=== PATIENT | female | born 1960 | race Hispanic/Latino ===

== ENCOUNTER 2019-02-13 09:51 | Emergency (ER) | payer OTHER ==
[~2019-02-13] VITALS: Ht 157.5 cm; Wt 63.5 kg
--- OUTSIDE RECORDS SUMMARY | 2019-02-13 09:53 | XMS REPORT | Clinical Summary ---
Author Author [facility] Organization [facility] Address Unknown Phone Unavailable Care Team Providers Care Professional Fee Coder Name Role Phone Tierra Alaniz MD PCP Allergies No Known Allergies Medications End Date Status Medication Sig Dispensed Refills Start Date Active cyanocobalamin, vitamin 1 tablet po 0 B-12, (VITAMIN B-12) once daily . 1,000 mcg tablet Active polyethylene glycol Add lukewarm 4000 mL 0 (GOLYTELY) [id number] drinking 8 -5.86 gram oral water to the solutionIndications: fill marko (4 Positive occult stool liters) and blood test shake. Drink as directed by your doctor.. Active acetaminophen (TYLENOL 0 OR) Active gabapentin (NEURONTIN) Take 1 90 capsule 2 100 mg capsule by 8 capsuleIndications: mouth 3 times Neuropathy daily. Active lisinopril (ZESTRIL) 2.5 Take 1 tablet 90 tablet 1 mg tabletIndications: by mouth 9 Essential hypertension daily. Active sertraline (ZOLOFT) 50 mg Take 1 tablet 30 tablet 1 tabletIndications: by mouth 9 Depressive disorder daily. Active ergocalciferol (VITAMIN Take 1 12 capsule 0 D2) 50,000 unit capsule by 9 capsuleIndications: mouth weekly. Vitamin D deficiency 01/18/2019 Discontinued ascorbic acid, vitamin C, 1 tablet po 0 (VITAMIN C) 500 mg tablet once daily . 12/15/2018 Discontinued calcium carbonate/vitamin 1 tablet po 0 D3 (CALCIUM WITH VITAMIN bid . D3 OR) 12/06/2018 Discontinued lisinopril (ZESTRIL) 2.5 Take 1 tablet 90 tablet 1 mg tabletIndications: by mouth 8 Essential hypertension daily. 12/06/2018 Discontinued PARoxetine (PAXIL) 10 mg Take 1 tablet 30 tablet 2 tabletIndications: by mouth 8 Depression, unspecified every depression type morning. 01/31/2019 Discontinued sertraline (ZOLOFT) 25 mg Take 1 tablet 30 tablet 1 tabletIndications: by mouth 9 Depressive disorder daily. 12/15/2018 Discontinued permethrin (ELIMITE) 5 % apply 60 g 0 topical creamIndications: topically 9 Skin rash from neck down to soles of feet and wash off after 8 to 14 hours, 1 application. 01/18/2019 Discontinued permethrin (ELIMITE) 5 % apply 60 g 0 topical creamIndications: topically 9 Skin rash from neck down to soles of feet and wash off after 8 to 14 hours, 1 application. Active Problems Problem Noted Date Essential hypertension 01/02/2018 Difficulty walking 11/29/2017 Acute pain of left shoulder 11/29/2017 Chronic pain of left knee 11/29/2017 Subgingival dental calculus 2017 History of dental examination 12/17/2015 Lack of housing 08/29/2013 Screening for unspecified mental disorder and developmental handicap 08/23/2013 Alcohol dependence 05/22/2012 History of Alcohol withdrawal 05/21/2012 Alcoholic Peripheral Neuropathy 11/13/2008 Raynauds syndrome 11/13/2008 Tobacco Abuse Macrocytic Anemia from chronic alcoholism Atrial fibrillation by electrocardiogram Paroxysmal atrial fibrillation with RVR Encounters Care Team Description Date Type Specialty Tierra Alaniz MD Vitamin D deficiency (Primary Dx) 02/06/2019 Orders Only Family Practice Mckinley Fuentes MD Depressive disorder 01/31/2019 Office Visit Psychiatry Mckinley Fuentes MD Depressive disorder 01/31/2019 Orders Only Psychiatry Esther Hernández, [facility] 01/31/2019 Clinical Case Social Work Mgt Tierra Alaniz MD No Show 01/23/2019 Hospital Radiology Encounter Jenae Hope, PARKER Erroneous encounter-disregard 01/22/2019 Telephone Family Practice Tierra Alaniz MD Results 01/19/2019 Telephone Family Practice Elsa Easley DO NO SHOW ENCOUNTER (Primary Dx) 01/18/2019 Office Visit Chemical Dependency Tierra Alaniz MD Essential hypertension (Primary Dx); Hyperlipidemia, unspecified hyperlipidemia type; Hypercalcemia; Hyperkalemia; Screening for breast cancer; Dietary counseling and surveillance 01/18/2019 Office Visit Family Practice 01/18/2019 Ashley Willoughby, PARKER Results 12/26/2018 Telephone [facility] Practice Hope Salgado LVN Results 12/22/2018 Telephone [facility] Practice Tierra Alaniz MD Hyperkalemia (Primary Dx) 12/20/2018 Orders Only Family Practice Tierra Alaniz MD 12/15/2018 Ancillary Radiology Procedure Tierra Alaniz MD Pain in joint of left shoulder; Pain of left lower leg 12/15/2018 Ancillary Radiology Procedure Tierra Alaniz MD Essential hypertension (Primary Dx); Hyperlipidemia, unspecified hyperlipidemia type; Pain in joint of left shoulder; Pain of left lower leg; Skin rash; Screening for diabetes mellitus; Screening for thyroid disorder; Screening for HIV (human immunodeficiency virus); Dietary counseling and surveillance; Screening for breast cancer 12/15/2018 Office Visit Family Practice Mckinley Fuentes MD Alcohol use disorder, severe, dependence (Primary Dx); Depressive disorder 12/06/2018 Office Visit Psychiatry 12/06/2018 Tierra Kelly MD Essential hypertension 12/06/2018 Refill [facility] Practice Elsa Easley DO NO SHOW ENCOUNTER (Primary Dx) 11/23/2018 Office Visit Chemical Dependency Henrietta Ascencio Appointment Related Questions (Confirmed new pt appt with Ms. López 11/23/18 and will mail appt to the address on file. ) 10/19/2018 Telephone Chemical Dependency Nancy Jay Moderate episode of recurrent major depressive disorder (Primary Dx); Alcohol use disorder, severe, dependence 10/17/2018 Office Visit Psychology Jenae Hope, PARKER Results 10/17/2018 Telephone Family Practice Symone Padron MD Depression, unspecified depression type (Primary Dx); Health care maintenance; Pain 10/12/2018 Office Visit Family Practice 10/12/2018 Idalia Rodríguez LD Appointment Related Questions 03/28/2018 Telephone Nutrition Tierra Alaniz MD Hadgu, Akberet T 03/17/2018 Hospital Cardiology Encounter Tierra Alaniz MD Gomez, Rossie J, DPM Neuropathy (Primary Dx) 03/16/2018 Office Visit Podiatry Ancelmo Guerrero, PT Betina Preston Difficulty walking; Acute pain of left shoulder; Chronic pain of left knee 02/22/2018 Therapy Physical Therapy after 02/12/2018 Immunizations Name Administration Dates Next Due Ceftriazone 500mg 12/20/2011 Injection Influenza Vaccine 05/27/2017, 04/21/2016, 08/30/2013, 05/23/2012, 03/16/2011, 03/12/2010 PPD 03/16/2011 PPV 23 Pneumococcal 12/15/2011 Polysaccaride Saline Solution Iv 10/25/2015 Tdap Tetanus, diphtheria, 05/21/2012 acellular pertussis Vaccine Triamcinolone 40mg/ml Inj 12/20/2011 Family History Medical History Relation Name Comments Psychiatry Father etoh Diabetes Maternal Grandmother Stroke Maternal Uncle Hypertension Mother Other Other pt denies family hx of: rad/ca/cad/sz Psychiatry Paternal etoh Grandfather Psychiatry Paternal etoh Uncle Psychiatry Paternal etoh Uncle Psychiatry Paternal etoh Uncle Psychiatry Paternal etoh Uncle Psychiatry Paternal etoh Uncle Psychiatry Paternal etoh Uncle Psychiatry Paternal etoh Uncle Psychiatry Paternal etoh Uncle Relation Name Status Comments Brother Alive x4 Father Alive Maternal Grandfather Maternal Grandmother Maternal Uncle Mother Alive Other Paternal Grandfather Paternal Grandmother Alive Paternal Uncle Paternal Uncle Paternal Uncle Paternal Uncle Paternal Uncle Paternal Uncle Paternal Uncle Paternal Uncle Sister Alive x2 Social History Date Tobacco Use Types Packs/Day Years Used Former Smoker Cigarettes Smokeless Tobacco: Former User Tobacco Cessation: Counseling Given: No Comments: quit in 2014 Drinks/Week oz/Week Comments Alcohol Use 12 Cans of beer 6.0 stop 05/10/2013 -1st drink age 20yo, last drink 40oz beer 01/30/15, 1-2 daily; detox 2012 at [place], drinking 2x40oz beers/day Yes Food Insecurity Answer Date Recorded Within the past 12 months, you worried that your Never true 01/02/2018 food would run out before you got money to buy more. Within the past 12 months, the food you bought Never true 01/02/2018 just didn't last and you didn't have money to get more. Sex Assigned at Date Recorded Not on file Industry Job Start Date Occupation Not on file Not on file Not on file Travel End Travel History Travel Start No recent travel history available. Last Filed Vital Signs Reading Time Taken Comments Vital Sign 131/70 01/31/2019 3:16 PM CDT Blood Pressure 79 01/31/2019 3:16 PM CDT Pulse 36.5 C (97.7 F) 01/31/2019 3:16 PM CDT Temperature 16 01/31/2019 3:16 PM CDT Respiratory Rate - - Oxygen Saturation - - Inhaled Oxygen Concentration 60.7 kg (133 lb 12.8 oz) 01/31/2019 3:16 PM CDT Weight 158.5 cm (5' 2.4") 01/31/2019 3:16 PM CDT Height 24.16 01/31/2019 3:16 PM CDT Body Mass Index Plan of Treatment Care Team Description Date Type Specialty Mckinley Fuentes MD [address] [place] [address] [phone] 4-6 week f/u 03/14/2019 Office Visit Psychiatry Health Maintenance Due Date Last Done Comments Breast Cancer Scrn 01/05/2019 01/05/2018, 12/14/2016, 10/27/2015, (Yearly) Additional history exists Cervical Cancer Scrn (3 12/16/2019 12/15/2016, 08/27/2013, 03/16/2011 Yrs) Goals Goal Patient Associated Recent Progress Patient-Stat Author Goal Type Problems ed? Improved Mood Lifestyle No Tierra Alaniz MD Increase Physical Activity Lifestyle No Valentina Salgado LVN Increase physical activity Self No Tierra Alaniz MD Take medications as prescribed Self No Tierra Alaniz MD Procedures Comments Procedure Name Priority Date/Time Associated Diagnosis BASIC METABOLIC PANEL Routine 01/31/2019 Hyperkalemia 4:20 PM CDT LIVER PROFILE Routine 01/31/2019 Depressive disorder 4:20 PM CDT VIT D, 25-HYDROXY Routine 01/18/2019 Hypercalcemia 2:02 PM CDT INTACT PARATHYROID Routine 01/18/2019 Hypercalcemia HORMONE (PTH) 2:02 PM CDT BASIC METABOLIC PANEL Routine 01/18/2019 Hypercalcemia 2:02 PM CDT Hyperkalemia XRAY TIBIA AND FIBULA 2 Routine 12/15/2018 Pain of left lower leg VIEWS 11:57 AM CDT XRAY SHOULDER 2 VIEWS MIN Routine 12/15/2018 Pain in joint of left 11:57 AM CDT shoulder HIV-1/HIV-2 ROUTINE Routine 12/15/2018 Screening for HIV (human SCREENING 11:13 AM CDT immunodeficiency virus) HEMOGLOBIN A1C Routine 12/15/2018 Screening for diabetes 11:13 AM CDT mellitus CBC (WITHOUT Routine 12/15/2018 Essential hypertension DIFFERENTIAL) 11:13 AM CDT BASIC METABOLIC PANEL Routine 12/15/2018 Essential hypertension 11:12 AM CDT LIVER PROFILE Routine 12/15/2018 Hyperlipidemia, 11:12 AM CDT unspecified hyperlipidemia type LIPID PROFILE Routine 12/15/2018 Hyperlipidemia, 11:12 AM CDT unspecified hyperlipidemia type THYROID STIMULATING Routine 12/15/2018 Screening for thyroid HORMONE (TSH) 11:12 AM CDT disorder FECAL OCCULT BLOOD Routine 10/17/2018 Health care maintenance 9:17 AM CDT TRANSTHORACIC ECHO (TTE) Routine 03/17/2018 History of atrial 10:20 AM CDT fibrillation after 02/12/2018 Results * LIVER PROFILE (01/31/2019 4:20 PM CDT) Only the most recent of 2 results within the time period is included. Total Protein 7.3 6.0 - 8.3 g/dL [facility] Total Bilirubin 0.8 0.2 - 1.2 mg/dL [facility] Alkaline 60 34 - 104 U/L [facility] Phosphatase [facility] AST 36 13 - 39 U/L [facility] Direct 0.2 0.0 - 0.2 mg/dL [facility] Bilirubin [facility] ALT 27 7 - 52 U/L [facility] Albumin 4.4 3.7 - 5.3 g/dL [facility] Specimen Blood Performing Organization Address [place] Phone [facility] [address] [place] [address] * BASIC METABOLIC PANEL (01/31/2019 4:20 PM CDT) Only the most recent of 3 results within the time period is included. Sodium 137 136 - 145 mmol/L [facility] Potassium 4.5 3.5 - 5.1 mmol/L [facility] Chloride 101 98 - 107 mmol/L [facility] CO2 27 21 - 31 mmol/L [facility] Urea Nitrogen 12.0 7.0 - 25.0 mg/dL [facility] Creatinine 0.8 0.6 - 1.2 mg/dL [facility] Glucose 107 70 - 110 mg/dL [facility] Calcium, Total 10.0 8.6 - 10.3 mg/dL [facility] GFR, Estimated 74 (L) >=90 mL/min/1.73 m2 [facility] Anion Gap 9 5 - 16 mmol/L [facility] Specimen Blood Performing Organization Address [facility] Phone Number [facility] [address] [place] [address] * VIT D, 25-HYDROXY (01/18/2019 2:02 PM CDT) Vit D, 19.8 (L) 30.0 - 100.0 ng/mL [facility] 25-Hydroxy [facility] Vitamin D Deficient (A) Sufficient [facility] Interpretation Comment: [facility] Sufficient:>30.0 Insufficient:20.0 - 29.9 Deficient: <20.0 Specimen Blood Performing Organization Address [facility] Phone Number [facility] [address] [place] [address] * INTACT PARATHYROID HORMONE (PTH) (01/18/2019 2:02 PM CDT) Intact PTH 49.5 8.7 - 77.1 pg/mL [facility] Specimen Blood Performing Organization Address [facility] Phone Number [facility] [address] [place] [address] * XRAY TIBIA AND FIBULA 2 VIEWS (12/15/2018 11:57 AM CDT) Specimen Impressions Performed At IMPRESSION: SMS 1.Status post plate and screw fixation for the proximal tibial fractures which are healed and in stable anatomic alignment. No evidence of hardware loosening or failure. 2.Chronic fracture deformity proximal fibula. 3.Mild degenerative change of the knee. Dictated By: Ismael Ag MD, 12/15/2018 1:29 PM I have reviewed the study and agree with the findings in this report. Signed By: Jose Parra MD, 12/15/2018 1:32 PM Narrative Performed At EXAMINATION:XRAY TIBIA AND FIBULA 2 VIEWS SMS SIDE: Left INDICATION: 58 year old with left lower leg pain at times COMPARISON:12/15/2017 DISCUSSION: See impression. Procedure Note Interface, Rad/Mammog In - 12/15/2018 1:37 PM CDT EXAMINATION: XRAY TIBIA AND FIBULA 2 VIEWS SIDE: Left INDICATION: 58 year old with left lower leg pain at times COMPARISON: 12/15/2017 DISCUSSION: See impression. IMPRESSION IMPRESSION: 1. Status post plate and screw fixation for the proximal tibial fractures which are healed and in stable anatomic alignment. No evidence of hardware loosening or failure. 2. Chronic fracture deformity proximal fibula. 3. Mild degenerative change of the knee. Dictated By: Ismael Ag MD, 12/15/2018 1:29 PM I have reviewed the study and agree with the findings in this report. Signed By: Jose Parra MD, 12/15/2018 1:32 PM Performing Organization Address City/State/Zipcode Phone Number SMS * XRAY SHOULDER 2 VIEWS MIN (12/15/2018 11:57 AM CDT) Specimen Impressions Performed At IMPRESSION: SMS 1.No acute radiographic abnormality. 2.Multiple old appearing left rib fractures. 3.Previous left shoulder reverse arthroplasty Dictated By: Ismael Ag MD, 12/15/2018 1:23 PM I have reviewed the study and agree with the findings in this report. Signed By: Jose Parra MD, 12/15/2018 1:24 PM Narrative Performed At EXAMINATION:XRAY SHOULDER 2 VIEWS MIN SMS SIDE: Left INDICATION: 58 year old with left shoulder pain at times COMPARISON:10/27/2017 DISCUSSION: Old appearing left rib fractures. Previous left shoulder reverse arthroplasty. No evidence of hardware loosening or failure Procedure Note Interface, Rad/Mammog In - 12/15/2018 1:29 PM CDT EXAMINATION: XRAY SHOULDER 2 VIEWS MIN SIDE: Left INDICATION: 58 year old with left shoulder pain at times COMPARISON: 10/27/2017 DISCUSSION: Old appearing left rib fractures. Previous left shoulder reverse arthroplasty. No evidence of hardware loosening or failure IMPRESSION IMPRESSION: 1. No acute radiographic abnormality. 2. Multiple old appearing left rib fractures. 3. Previous left shoulder reverse arthroplasty Dictated By: Ismael Ag MD, 12/15/2018 1:23 PM I have reviewed the study and agree with the findings in this report. Signed By: Jose Parra MD, 12/15/2018 1:24 PM Performing Organization Address City[facility] Phone Number [facility] * HIV-1/HIV-2 ROUTINE SCREENING (12/15/2018 11:13 AM CDT) Pathologist [facility] HIV-1/HIV-2 NEGATIVE Negative [facility] Specimen Blood Performing Organization Address [facility] Phone Number [facility] [address] [place] [address] * HEMOGLOBIN A1C (12/15/2018 11:13 AM CDT) Pathologist [facility] Hemoglobin A1c 5.3 % [facility] Estimated 105 70 - 110 mg/dL [facility] Average Glucose [facility] Specimen Blood Performing Organization Address [facility] Phone Number [facility] [address] [place] [address] * CBC (WITHOUT DIFFERENTIAL) (12/15/2018 11:13 AM CDT) Pathologist [facility] WBC 6.4 4.5 - 11.0 K/uL [facility] RBC 4.06 (L) 4.20 - 5.40 M/uL [facility] Hemoglobin 13.6 12.0 - 16.0 g/dL [facility] Hematocrit 43.1 37.0 - 47.0 % [facility] MCV 106.2 (H) 82.0 - 92.0 fL [facility] MCH 33.5 (H) 27.0 - 32.0 pg [facility] MCHC 31.6 (L) 32.0 - 36.0 g/dL [facility] RDW 47.4 (H) 36.4 - 46.3 fL [facility] Platelet 414 (H) 150 - 400 K/uL [facility] Mean Platelet 11.6 9.4 - 12.4 fL [facility] Volume [facility] Percent NRBC 0.0 % [facility] Specimen Blood Performing Organization Address [facility] Phone Number [facility] [address] [place], [place] [id number] * THYROID STIMULATING HORMONE (TSH) (12/15/2018 11:12 AM CDT) TSH 0.99 0.57 - 3.74 uIU/mL [facility] Comment: [facility] If , please see the following reference ranges (not verified by lab): 1st Trimester: 0.05 -3.70 uIU/mL 2nd Trimester: 0.31 -4.35 uIU/mL 3rd Trimester: 0.41 - 5.18 uIU/mL Specimen Blood Performing Organization Address [facility] Phone Number [facility] [address] [place] [address] * LIPID PROFILE (12/15/2018 11:12 AM CDT) Triglyceride 77 <150 mg/dL [facility] Comment: [facility] Normal: < 150.0 mg/dL Borderline: 150-199 mg/dL High: 200-499 mg/dL Very High: >=500 mg/dL Cholesterol 247.0 (H) <=200.0 mg/dL [facility] Comment: [facility] Desirable: < 200.0 mg/dL Borderline: 200 - 240 mg/dL High Risk: > 240 mg/dL HDL 71.0 See Reference Range [facility] Comment: Narrative. mg/dL [facility] Increased CHD Risk: < 40.0 mg/dL Decreased CHD Risk: > 60 mg/dL LDL 161 (H) <100 mg/dL [facility] Comment: [facility] Optimal: < 100.0 mg/dL Near Optimal: 120-129 mg/dL Borderline: 130-159 mg/dL High: 160-189 mg/dL Very High: >=190 mg/dL Specimen Blood Performing Organization Address [facility] Phone Number [facility] [address] [place] [address] * OCCULT BLOOD ICT (10/17/2018 9:17 AM CDT) Occult Blood Negative [facility] ICT Specimen Stool Performing Organization Address [facility] Phone Number [facility] * TRANSTHORACIC ECHO (TTE) (03/17/2018 10:20 AM CDT) TRANSTHORACIC Transthoracic SMS ECHO (TTE) Echo Report LESLY ROBLES Age:58 Gender: F :1960 Exam Date: 03/17/2018 10:20 Exam Location: [facility] Echo Ordering Phys: TIERRA ALANIZ Referring Phys: Reading Phys:Mendoza Klein MD Fellow Phys: Lawson Adkins MD Fellow Phys: Loan Manager: Bina Franks Reason For Exam: Indications: 57 year old with history of paroxysmal atrial fibrillation, A- Fib ICD-9 Codes: I48.91 Exam Type: TRANSTHORACIC ECHO (TTE) Procedure CPT:47926 Addtional CPT: Ht (in): 61 BSA: 1.60HR: 84 Rhythm: Sinus rhythm Wt (lb): 130BP: 122/ 77 Technical Quality: Adequate History: MEASUREMENTS(Male / Female) Normal Values 2D ECHO LV Diastolic Diameter PLAX4.2 cm 4.2 - 5.9 / 3.9 - 5.3 cm LV Systolic Diameter PLAX 2.4 cm 2.1 - 4.0 cm LV Fractional Shortening PLAX 42.5 % 25 - 46% IVS Diastolic Thickness 1.2 cm LVPW Diastolic Thickness0 .92 cm LV Relative Wall Thickness0.51 LVOT Diameter 2.1 cm Aortic Root Diameter 2.9 cm LA Systolic Diameter LX 3.2 cm 3.0 - 4.0 / 2.7 - 3.8 cm LA Ao Ratio 1.1 LV Diastolic Volume MOD 2C76.1 cm LV Systolic Volume MOD 2C 25.8 cm LV Ejection Fraction MOD 2C 66.1 % LV Stroke Volume MOD 2C 50.3 cm LV Cardiac Output MOD [id number] cm/min LV Cardiac Index MOD 2C 2633 cm/minm LA Volume 29.9 cm 18 - 58 / 22 - 52 cm LA Volume Index 18.6 cm/m 16 - 28 cm/m RV Diastolic Basal Diameter 3.2 cm 2.0 - 2.8 cm RV Diastolic Mid Diameter 2.2 cm 2.7 - 3.3 cm RA Area 9.9 cm DOPPLER LVOT Peak Velocity 123 cm/s LVOT Peak Gradient 6 mmHg LVOT Mean Velocity 73.8 cm/s LVOT Mean Gradient 2.2 mmHg LVOT Velocity Time Integral 23.3 cm LVOT Stroke Volume 80.2 cm Mitral E Point Velocity 65.1 cm/s Mitral A Point Velocity 63.3 cm/s Mitral E to A Ratio 1 TR Peak Velocity 285 cm/s TR Peak Gradient 32.5 mmHg LV E' Lateral Velocity 7.7 cm/s Mitral E to LV E' Lateral Ratio 8.5 LV A' Lateral Velocity 11.9 cm/s LV E' Septal Velocity 6.8 cm/s Mitral E to LV E' Septal Ratio9.5 LV A' Septal Velocity 7.4 cm/s FINDINGS Left Ventricle Normal left ventricular size. Left ventricular wall thickness mildly increased. Normal left ventricular systolic function. Left ventricular ejection fraction is 65-69%. There are no regional wall motion abnormalities noted. Impaired LV relaxation, normal LV filling pressures. Right Ventricle Normal right ventricular size and systolic function. Right Atrium Normal right atrial size. Left Atrium Normal left atrial size. IAS Mitral Valve Grossly normal mitral valve. No mitral stenosis, regurgitation or prolapse. Aortic Valve Grossly normal aortic valve. No aortic valve stenosis or regurgitation. Tricuspid Valve Grossly normal tricuspid valve. Pulmonary artery systolic pressure estimated to be33-38 mm Hg assuming an RA pressure of 0-5mm Hg. Pulmonic Valve Structurally normal pulmonic valve. Pericardium No pericardial effusion. Aorta Normal size aortic root. Proximal ascending aorta not well visualized. IVC RA pressure is 0-5 mmHg. CONCLUSIONS No prior study for comparison. 1. Normal left ventricular size. Left ventricular wall thickness mildly increased. Normal left ventricular systolic function. Left ventricular ejection fraction is 65-69%. There are no regional wall motion abnormalities noted. Impaired LV relaxation, normal LV filling pressures. 2. Normal right ventricular size and systolic function. 3. No significant valve abnormalities. 4. Pulmonary artery systolic pressure estimated to be33-38 mm Hg assuming an RA pressure of 0-5mm Hg. PASP is upper limits of normal. Mendoza Klein MD Edited by:Mendoza Klein MD (Electronically Signed) Final Date:17 March 2018 17:21 2D ECHO LV Diastolic Diameter PLAX4.2 cm 4.2 - 5.9 / 3.9 - 5.3 cm LV Systolic Diameter PLAX 2.4 cm 2.1 - 4.0 cm LV Fractional Shortening PLAX 42.5 % 25 - 46% IVS Diastolic Thickness 1.2 cm LVPW Diastolic Thickness0 .92 cm LV Relative Wall Thickness0.51 LVOT Diameter 2.1 cm Aortic Root Diameter 2.9 cm LA Systolic Diameter LX 3.2 cm 3.0 - 4.0 / 2.7 - 3.8 cm LA Ao Ratio 1.1 LV Diastolic Volume MOD 2C76.1 cm LV Systolic Volume MOD 2C 25.8 cm LV Ejection Fraction MOD 2C 66.1 % LV Stroke Volume MOD 2C 50.3 cm LV Cardiac Output MOD [id number] cm/min LV Cardiac Index MOD 2C 2633 cm/minm LA Volume 29.9 cm 18 - 58 / 22 - 52 cm LA Volume Index 18.6 cm/m 16 - 28 cm/m RV Diastolic Basal Diameter 3.2 cm 2.0 - 2.8 cm RV Diastolic Mid Diameter 2.2 cm 2.7 - 3.3 cm RA Area 9.9 cm DOPPLER LVOT Peak Velocity 123 cm/s LVOT Peak Gradient 6 mmHg LVOT Mean Velocity 73.8 cm/s LVOT Mean Gradient 2.2 mmHg LVOT Velocity Time Integral 23.3 cm LVOT Stroke Volume 80.2 cm Mitral E Point Velocity 65.1 cm/s Mitral A Point Velocity 63.3 cm/s Mitral E to A Ratio 1 TR Peak Velocity 285 cm/s TR Peak Gradient 32.5 mmHg LV E' Lateral Velocity 7.7 cm/s Mitral E to LV E' Lateral Ratio 8.5 LV A' Lateral Velocity 11.9 cm/s LV E' Septal Velocity 6.8 cm/s Mitral E to LV E' Septal Ratio9.5 LV A' Septal Velocity 7.4 cm/s Specimen Performing Organization Address City/State/Zipcode Phone Number SMS after 02/12/2018 Insurance Type Payer Benefit Subscriber ID Effective Phone Address Plan / Dates Group [employer]ICA[employer] HMO [employer] xxxxxxxxx 2018- [phone] [address] [address] [place] [address] [employer] HMO [employer] xxxxxxxxx 2019- [phone] [address] [address] [place] [address] (Work) Advance Directives Date Inactivated Comments Code Status Date Activated 03/25/2013 8:11 PM Full Code 03/24/2013 3:22 PM 05/23/2012 7:16 PM Full Code 05/21/2012 9:16 PM 12/15/2011 7:56 PM Full Code 12/15/2011 12:03 AM Decision reached by: Competent Patient
--- OUTSIDE RECORDS SUMMARY | 2019-02-13 09:54 | XMS REPORT ---
Author Author [facility] Address Unknown Phone Unavailable Care Team Providers [facility] Manager Name Role Phone Unavailable Unavailable Payers Payer Name Policy Type Policy Number Effective Date Expiration Date Problems This patient has no known problems. Allergies, Adverse Reactions, Alerts Allergy Name Allergy Type Status Severity Reaction(s) Onset Date Inactive Date Treating Clinician Comments No Known Allergies DA Active U 2019-02-09 00:00:00 No Known Allergies DA Active U 2017-04-07 00:00:00 Medications This patient has no known medications. Encounters Start Date/Time End Date/Time Encounter Type Admission Type Attending Clinicians Care Facility Care Department Encounter ID 2019-03-14 00:00:00 2019-03-14 00:00:00 Outpatient [facility] [id number] 2019-02-07 00:00:00 2019-02-07 00:00:00 Outpatient [facility] [id number] 2019-02-05 00:00:00 2019-02-05 00:00:00 Outpatient [facility] [id number] 2019-01-31 16:19:25 2019-01-31 16:19:25 Outpatient [facility] [id number] 2019-01-31 15:16:01 2019-01-31 15:16:01 Outpatient [facility] [id number] 2019-01-31 00:00:00 2019-01-31 00:00:00 Outpatient [facility] [id number] 2019-01-24 00:00:00 2019-01-24 00:00:00 Outpatient [facility] [id number] 2019-01-23 00:00:00 2019-01-23 00:00:00 Outpatient [facility] [id number] 2019-01-18 14:01:53 2019-01-18 14:01:53 Outpatient [facility] [id number] 2019-01-18 11:53:39 2019-01-18 11:53:39 Outpatient [facility] [id number] 2019-01-18 00:00:00 2019-01-18 00:00:00 Outpatient [facility] [id number] 2019-01-18 00:00:00 2019-01-18 00:00:00 Outpatient [facility] [id number] 2019-01-17 00:00:00 2019-01-17 00:00:00 Outpatient [facility] [id number] 2019-01-17 00:00:00 2019-01-17 00:00:00 Outpatient [facility] [id number] 2019-01-12 00:00:00 2019-01-12 00:00:00 Outpatient [facility] [id number] 2019-01-11 00:00:00 2019-01-11 00:00:00 Outpatient [facility] [id number] 2019-01-09 00:00:00 2019-01-09 00:00:00 Outpatient [facility] [id number] 2019-01-09 00:00:00 2019-01-09 00:00:00 Outpatient [facility] [id number] 2019-01-05 00:00:00 2019-01-05 00:00:00 Outpatient [facility] [id number] 2019-01-04 00:00:00 2019-01-04 00:00:00 Outpatient [facility] [id number] 2019-01-02 00:00:00 2019-01-02 00:00:00 Outpatient [facility] [id number] 2019-01-02 00:00:00 2019-01-02 00:00:00 Outpatient [facility] [id number] 2018-12-29 00:00:00 2018-12-29 00:00:00 Outpatient [facility] [id number] 2018-12-22 00:00:00 2018-12-22 00:00:00 Outpatient [facility] [id number] 2018-12-15 11:32:04 2018-12-15 11:32:04 Outpatient [facility] [id number] 2018-12-15 11:31:49 2018-12-15 11:31:49 Outpatient [facility] [id number] 2018-12-15 11:12:29 2018-12-15 11:12:29 Outpatient [facility] [id number] 2018-12-15 09:40:27 2018-12-15 09:40:27 Outpatient [facility] [id number] 2018-12-15 00:00:00 2018-12-15 00:00:00 Outpatient [facility] [id number] 2018-12-06 13:27:19 2018-12-06 13:27:19 Outpatient [facility] [id number] 2018-12-06 00:00:00 2018-12-06 00:00:00 Outpatient [facility] [id number] 2018-11-23 00:00:00 2018-11-23 00:00:00 Outpatient [facility] [id number] 2018-11-23 00:00:00 2018-11-23 00:00:00 Outpatient [facility] [id number] 2018-11-23 00:00:00 2018-11-23 00:00:00 Outpatient [facility] [id number] 2018-11-22 00:00:00 2018-11-22 00:00:00 Outpatient [facility] [id number] 2018-11-16 00:00:00 2018-11-16 00:00:00 Outpatient [facility] [id number] 2018-11-16 00:00:00 2018-11-16 00:00:00 Outpatient [facility] [id number] 2018-11-16 00:00:00 2018-11-16 00:00:00 Outpatient [facility] [id number] 2018-11-15 00:00:00 2018-11-15 00:00:00 Outpatient [facility] [id number] 2018-11-15 00:00:00 2018-11-15 00:00:00 Outpatient [facility] [id number] 2018-11-14 00:00:00 2018-11-14 00:00:00 Outpatient [facility] [id number] 2018-11-09 00:00:00 2018-11-09 00:00:00 Outpatient [facility] [id number] 2018-11-09 00:00:00 2018-11-09 00:00:00 Outpatient [facility] [id number] 2018-11-08 00:00:00 2018-11-08 00:00:00 Outpatient [facility] [id number] 2018-11-08 00:00:00 2018-11-08 00:00:00 Outpatient [facility] [id number] 2018-11-08 00:00:00 2018-11-08 00:00:00 Outpatient [facility] [id number] 2018-11-01 00:00:00 2018-11-01 00:00:00 Outpatient [facility] [id number] 2018-11-01 00:00:00 2018-11-01 00:00:00 Outpatient [facility] [id number] 2018-10-31 00:00:00 2018-10-31 00:00:00 Outpatient [facility] [id number] 2018-10-23 00:00:00 2018-10-23 00:00:00 Outpatient [facility] [id number] 2018-10-23 00:00:00 2018-10-23 00:00:00 Outpatient [facility] [id number] 2018-10-19 00:00:00 2018-10-19 00:00:00 Outpatient [facility] [id number] 2018-10-19 00:00:00 2018-10-19 00:00:00 Outpatient [facility] [id number] 2018-10-18 00:00:00 2018-10-18 00:00:00 Outpatient [facility] [id number] 2018-10-17 10:40:04 2018-10-17 10:40:04 Outpatient [facility] [id number] 2018-10-17 09:27:12 2018-10-17 09:27:12 Outpatient [facility] [id number] 2018-10-17 00:00:00 2018-10-17 00:00:00 Outpatient [facility] [id number] 2018-10-17 00:00:00 2018-10-17 00:00:00 Outpatient [facility] [id number] 2018-10-17 00:00:00 2018-10-17 00:00:00 Outpatient [facility] [id number] 2018-10-16 00:00:00 2018-10-16 00:00:00 Outpatient [facility] [id number] 2018-10-13 00:00:00 2018-10-13 00:00:00 [facility] [id number] 2018-10-13 00:00:00 2018-10-13 00:00:00 Outpatient [facility] [id number] 2018-10-13 00:00:00 2018-10-13 00:00:00 Outpatient [facility] [id number] 2018-10-13 00:00:00 2018-10-13 00:00:00 Outpatient [facility] [id number] 2018-10-12 13:54:44 2018-10-12 13:54:44 Outpatient [facility] [id number] 2018-10-05 00:00:00 2018-10-05 00:00:00 Outpatient [facility] [id number] 2018-09-28 00:00:00 2018-09-28 00:00:00 Outpatient [facility] [id number] 2018-09-13 00:00:00 2018-09-13 00:00:00 Outpatient [facility] [id number] 2018-08-23 00:00:00 2018-08-23 00:00:00 Outpatient [facility] [id number] 2018-08-22 00:00:00 2018-08-22 00:00:00 Outpatient [facility] [id number] 2018-07-18 00:00:00 2018-07-18 00:00:00 Outpatient [facility] [id number] 2018-06-15 00:00:00 2018-06-15 00:00:00 Outpatient [facility] [id number] 2018-06-07 00:00:00 2018-06-07 00:00:00 Outpatient [facility] [id number] 2018-05-18 00:00:00 2018-05-18 00:00:00 Outpatient [facility] [id number] 2018-05-18 00:00:00 2018-05-18 00:00:00 Outpatient [facility] [id number] 2018-05-05 00:00:00 2018-05-05 00:00:00 Outpatient [facility] [id number] 2018-04-28 00:00:00 2018-04-28 00:00:00 Outpatient [facility] [id number] 2018-04-21 00:00:00 2018-04-21 00:00:00 Outpatient [facility] [id number] 2018-04-14 00:00:00 2018-04-14 00:00:00 Outpatient [facility] [id number] 2018-04-11 00:00:00 2018-04-11 00:00:00 Outpatient [facility] [id number] 2018-04-11 00:00:00 2018-04-11 00:00:00 Outpatient [facility] [id number] 2018-04-07 00:00:00 2018-04-07 00:00:00 Outpatient [facility] [id number] 2018-03-28 00:00:00 2018-03-28 00:00:00 Outpatient [facility] [id number] 2018-03-28 00:00:00 2018-03-28 00:00:00 Outpatient [facility] [id number] 2018-03-21 00:00:00 2018-03-21 00:00:00 Outpatient [facility] [id number] 2018-03-17 10:04:51 2018-03-17 10:04:51 Outpatient [facility] [id number] 2018-03-17 00:00:00 2018-03-17 00:00:00 Outpatient [facility] [id number] 2018-03-16 14:11:40 2018-03-16 14:11:40 Outpatient [facility] [id number] 2018-03-03 00:00:00 2018-03-03 00:00:00 Outpatient [facility] [id number] 2018-03-02 00:00:00 2018-03-02 00:00:00 Outpatient [facility] [id number] 2018-02-27 00:00:00 2018-02-27 00:00:00 Outpatient [facility] [id number] 2018-02-23 00:00:00 2018-02-23 00:00:00 Outpatient [facility] [id number] 2018-02-22 08:18:08 2018-02-22 08:18:08 Outpatient [facility] [id number] 2018-02-10 00:00:00 2018-02-10 00:00:00 Outpatient [facility] [id number] 2018-02-08 00:00:00 2018-02-08 00:00:00 Outpatient [facility] [id number] 2018-01-31 08:21:00 2018-01-31 08:21:00 Outpatient [facility] [id number] 2018-01-24 12:54:31 2018-01-24 12:54:31 Outpatient [facility] [id number] 2018-01-20 00:00:00 2018-01-20 00:00:00 Outpatient [facility] [id number] 2018-01-20 00:00:00 2018-01-20 00:00:00 Outpatient [facility] [id number] 2018-01-17 00:00:00 2018-01-17 00:00:00 Outpatient [facility] [id number] 2018-01-16 09:35:03 2018-01-16 09:35:03 Outpatient [facility] [id number] 2018-01-12 00:00:00 2018-01-12 00:00:00 Outpatient [facility] [id number] 2018-01-11 00:00:00 2018-01-11 00:00:00 Outpatient [facility] [id number] 2018-01-11 00:00:00 2018-01-11 00:00:00 Outpatient [facility] [id number] 2018-01-05 08:28:48 2018-01-05 08:28:48 Outpatient [facility] [id number] 2018-01-04 13:14:35 2018-01-04 13:14:35 Outpatient [facility] [id number] 2018-01-02 14:01:35 2018-01-02 14:01:35 Outpatient [facility] [id number] 2018-01-02 13:49:10 2018-01-02 13:49:10 Outpatient [facility] [id number] 2018-01-02 11:43:12 2018-01-02 11:43:12 Outpatient [facility] [id number] 2018-01-02 00:00:00 2018-01-02 00:00:00 Outpatient [facility] [id number] 2018-01-02 00:00:00 2018-01-02 00:00:00 Outpatient [facility] [id number] 2018-01-02 00:00:00 2018-01-02 00:00:00 Outpatient [facility] [id number] 2017-12-22 10:01:52 2017-12-22 10:01:52 Outpatient [facility] [id number] 2017-12-22 00:00:00 2017-12-22 00:00:00 Outpatient [facility] [id number] 2017-12-16 00:00:00 2017-12-16 00:00:00 Outpatient [facility] [id number] 2017-12-15 11:17:14 2017-12-15 11:17:14 Outpatient [facility] [id number] 2017-12-15 10:26:00 2017-12-15 10:26:00 Outpatient [facility] [id number] 2017-12-13 00:00:00 2017-12-13 00:00:00 Outpatient [facility] [id number] 2017-12-09 07:51:11 2017-12-09 07:51:11 Outpatient [facility] [id number] 2017-12-08 00:00:00 2017-12-08 00:00:00 Outpatient [facility] [id number] 2017-11-29 13:14:50 2017-11-29 13:14:50 Outpatient [facility] [id number] 2017-11-29 13:04:23 2017-11-29 13:04:23 Outpatient [facility] [id number] 2017-11-28 00:00:00 2017-11-28 00:00:00 Outpatient [facility] [id number] 2017-11-25 10:14:04 2017-11-25 10:14:04 Outpatient [facility] [id number] 2017-11-25 07:55:31 2017-11-25 07:55:31 Outpatient [facility] [id number] 2017-11-25 00:00:00 2017-11-25 00:00:00 Outpatient [facility] [id number] 2017-11-17 09:21:30 2017-11-17 09:21:30 Outpatient [facility] [id number] 2017-11-17 08:02:32 2017-11-17 08:02:32 Outpatient [facility] [id number] 2017-11-17 07:35:25 2017-11-17 07:35:25 Outpatient [facility] [id number] 2017-11-07 00:00:00 2017-11-07 00:00:00 Outpatient [facility] [id number] 2017-10-27 14:28:55 2017-10-27 14:28:55 Outpatient [facility] [id number] 2017-10-27 12:58:27 2017-10-27 12:58:27 Outpatient [facility] [id number] 2017-10-27 00:00:00 2017-10-27 00:00:00 Outpatient [facility] [id number] 2017-10-27 00:00:00 2017-10-27 00:00:00 Outpatient [facility] [id number] 2017-08-25 00:00:00 2017-08-25 00:00:00 Outpatient [facility] [id number] 2017-07-14 00:00:00 2017-07-14 00:00:00 Outpatient [facility] [id number] 2017-07-13 00:00:00 2017-07-13 00:00:00 Outpatient [facility] [id number] 2017-07-02 09:04:13 2017-07-02 09:04:13 Outpatient [facility] [id number] 2017-06-15 00:00:00 2017-06-15 00:00:00 Outpatient [facility] [id number] 2017-06-10 10:01:01 2017-06-10 10:01:01 Outpatient [facility] [id number] 2017-05-27 10:56:34 2017-05-27 10:56:34 Outpatient [facility] [id number] 2017-04-28 10:14:50 2017-04-28 10:14:50 Outpatient [facility] [id number] 2017-03-18 00:00:00 2017-03-18 00:00:00 Outpatient [facility] [id number] 2017-03-18 00:00:00 2017-03-18 00:00:00 Outpatient [facility] [id number] 2017-03-15 14:04:59 2017-03-15 14:04:59 Outpatient [facility] [id number] 2017-03-02 00:00:00 2017-03-02 00:00:00 Outpatient [facility] [id number] 2017-02-28 00:00:00 2017-02-28 00:00:00 Outpatient [facility] [id number] 2017-02-18 00:00:00 2017-02-18 00:00:00 Outpatient [facility] [id number] 2017-02-10 00:00:00 2017-02-10 00:00:00 Outpatient [facility] [id number] 2017 13:54:16 2017 13:54:16 Outpatient [facility] [id number] 00:00:00 2017 00:00:00 Outpatient [facility] [id number] 2017-01-26 07:41:57 2017-01-26 07:41:57 Outpatient [facility] [id number] 2017-01-11 00:00:00 2017-01-11 00:00:00 Outpatient [facility] [id number] 2017-01-07 00:00:00 2017-01-07 00:00:00 Outpatient [facility] [id number] 2017-01-06 13:46:37 2017-01-06 13:46:37 Outpatient [facility] [id number] 2017-01-05 00:00:00 2017-01-05 00:00:00 Outpatient [facility] [id number] 2016-12-27 10:28:35 2016-12-27 10:28:35 Outpatient [facility] [id number] 2016-12-24 11:25:35 2016-12-24 11:25:35 Outpatient [facility] [id number] 2016-12-24 10:56:16 2016-12-24 10:56:16 Outpatient [facility] [id number] 2016-12-24 09:28:53 2016-12-24 09:28:53 Outpatient [facility] [id number] 2016-12-24 00:00:00 2016-12-24 00:00:00 Outpatient [facility] [id number] 2016-12-15 13:07:38 2016-12-15 13:07:38 Outpatient [facility] [id number] 2016-12-14 13:11:47 2016-12-14 13:11:47 Outpatient [facility] [id number] 2016-12-13 00:00:00 2016-12-13 00:00:00 Outpatient [facility] [id number] 2016-12-13 00:00:00 2016-12-13 00:00:00 Outpatient [facility] [id number] 2016-12-10 11:42:32 2016-12-10 11:42:32 Outpatient [facility] [id number] 2016-12-10 11:35:57 2016-12-10 11:35:57 Outpatient [facility] [id number] 2016-12-08 14:03:58 2016-12-08 14:03:58 Emergency [facility] [id number] 2016-12-08 13:51:06 2016-12-08 13:51:06 Emergency [facility] [id number] 2016-12-08 07:52:26 2016-12-08 07:52:26 Outpatient [facility] [id number] 2016-12-08 00:00:00 2016-12-08 00:00:00 Outpatient [facility] [id number] 2016-11-19 00:00:00 2016-11-19 00:00:00 Outpatient [facility] [id number] Results Test Description Test Time Test Comments Text Results Atomic Results Result Comments PHOSPHORUS 2019-02-09 14:04:00 PHOSPHORUS (test code=PHOS) 3.3 mg/dL 2.5-4.9 [id number] 14:04:00* Test Item Value Reference Range Comments AMYLASE (test code=MALCOM) 53 Unit/L 25-115 [id number] 14:04:00* Test Item Value Reference Range Comments LIPASE (test code=LIP) 146 U/L 73.0-393.0 [id number] 14:04:00* Test Item Value Reference Range Comments MAGNESIUM (test code=MAG) 1.6 mg/dL 1.8-2.4 VITAMIN [id number] 14:04:00* Test Item Value Reference Range Comments VITAMIN B12 (test code=VITB12) 485 pg/mL 193-986 FOLIC [id number] 14:04:00* Test Item Value Reference Range Comments FOLIC ACID (test code=FOL) 15.7 ng/mL 3.10-17.50 - CTA [id number] 13:40:00 Name: NICOLLE ROBLES [facility] : 1960 Age/S: 59 / F [address] [facility] Unit #: [id number] Loc: [place] [address] Phys: Stas Hernandez MD Acct: [id number] Dis Date: Status: ADM IN PHONE #: [phone] Exam Date: 02/09/2019 1328 FAX #: [phone] Reason: chest pain EXAMS: CPT CODE: [id number] CTA CHEST 22448 HISTORY: Chest pain. COMPARISON: None available. CTA CHEST: 3-D images. 100 mL Isovue-370. Automated exposure control. Unremarkable aorta without aneurysm or dissection. Suboptimal contrast bolus of the pulmonary arteries however no embolism in the proximal and mid pulmonary artery branches. Distal branches are nondiagnostic due to poor opacification and poor resolution. Well-opacified SVC and the neck vasculature in the portions visualized. Thyroid glands are unremarkable. Esophageal wall is not thickened. No pathologic adenopathy. Cardiac silhouette is normal without pericardial effusion. Visualized upper abdomen demonstrating fatty liver. The subcutaneous tissues and the musculature are normal in appearance. No lytic or blastic lesions are noted within the bony skeleton. DJD. Old posterior lateral left upper rib fracture. Platelike atelectasis within the lingula. No infiltrates, effusion or congestion. No bronchiectasis, honeycombing or fibrosis or endobronchial lesions are noted. No lung mass or nodules are noted. IMPRESSION: No pulmonary embolism in the mid and proximal pulmonary artery branches. The distal branches are limited due to suboptimal contrast bolus and poor resolution. Unremarkable aorta without aneurysm or dissection. The lungs are clear with dependent changes in the lingula. at 1340 Reported and signed by: Dung Gonzalez M.D. CC: Stas Hernandez MD Technologist:Melody Alaniz,RT(R),CT CTDI: DLP: Trnscb Date/Time: 02/09/2019 (4820) t.[email or web address] Orig Print D/T: S: 02/09/2019 (8604) PAGE 1 Signed Report [id number] 13:34:00* Test Item Value Reference Range Comments ALCOHOL (test code=ALC) 327 mg/dL 0.0-3.0 INTERPRETIVE DATA NOTE: POSITIVE SCREENING RESULTS SHOULD BE CONSIDERED PRESUMPTIVE.WHEN COLLECTED FOR MEDICAL PURPOSES ONLY. SPECIMEN WILL NOTBE COLLECTED BY CHAIN OF CUSTODY.IF A CONFIRMATION OF POSITIVE RESULTS IS DESIRED, ACONFIRMATION TEST MUST BE REQUESTED BY THE PHYSICIAN AT ANADDITIONAL CHARGE TO THE PATIENT. [id number] 12:07:00* Test Item Value Reference Range Comments D-DIMER (test code=DDIMER) 696.00 ng/mLFEU 0-500 Results called to by [email or web address] 02/09/19 1207Critical results verified and read back by Nurse? YClinical Cut-off value for D-Dimer is 500 ng/mL FEU. Comment: The [employer] D- Dimer assay is intended for use asan aid in the diagnosis of venous thromboembolism (VTE)[deep vein thrombosis (DVT) or pulmonary embolism (PE)].The measurement of D-Dimer should not be used as an aid inthe diagnosis of VTE, in patient with: -Therapeutic dose anticoagulant therapy for >24 hours - Fibrinolytic therapy within previous 7 days -Trauma or surgery within previous 4 weeks -Disseminated malignancies -Aortic aneurysm -Sepsis, severe infections, pneumonia, severe skin infections -Liver cirrhosis - BASIC METABOLIC [id number] 12:06:00* Test Item Value Reference Range Comments SODIUM (test code=NA) 139 mmol/L 136-145 POTASSIUM (test code=K) 3.9 mmol/L 3.5-5.1 CHLORIDE (test code=CL) 105.0 mmol/L 98-107 CARBON DIOXIDE (test code=CO2) 23.0 mmol/L 21-32 ANION GAP (test code=GAP) 14.9 10-20 GLUCOSE (test code=GLU) 104 mg/dL 74-106 BLOOD UREA NITROGEN (test code=BUN) 5 mg/dL 7-18 GLOMERULAR FILTRATION RATE (test code=GFR) > 60 mL/min >=60 Estimated GFR by using Modified MDRD formula.Chronic kidney disease is defined as either kidney damageor GFR <60 mL/min/1.73 m2 for >3 months. CREATININE (test code=CREAT) 0.60 mg/dL 0.55-1.02 Note change in reference range due to change in reagent. BUN/CREATININE RATIO (test code=BUN/CREA) 8.5 10-20 CALCIUM (test code=CA) 8.9 mg/dL 8.5-10.1 [id number] 12:06:00* Test Item Value Reference Range Comments TROPONIN-I (test code=TROPI) <0.015 ng/mL 0-0.045 BASIC METABOLIC [id number] 11:55:00* Test Item Value Reference Range Comments SODIUM (test code=NA) 139 mmol/L 136-145 POTASSIUM (test code=K) 3.9 mmol/L 3.5-5.1 CHLORIDE (test code=CL) 105.0 mmol/L 98-107 CARBON DIOXIDE (test code=CO2) mmol/L 21-32 ANION GAP (test code=GAP) 10-20 GLUCOSE (test code=GLU) mg/dL 74-106 BLOOD UREA NITROGEN (test code=BUN) mg/dL 7-18 GLOMERULAR FILTRATION RATE (test code=GFR) mL/min >=60 CREATININE (test code=CREAT) mg/dL 0.55-1.02 BUN/CREATININE RATIO (test code=BUN/CREA) 10-20 CALCIUM (test code=CA) 8.9 mg/dL 8.5-10.1 [id number] 11:55:00* Test Item Value Reference Range Comments TROPONIN-I (test code=TROPI) ng/mL 0-0.045 BASIC METABOLIC [id number] 11:54:00* Test Item Value Reference Range Comments SODIUM (test code=NA) 139 mmol/L 136-145 POTASSIUM (test code=K) 3.9 mmol/L 3.5-5.1 CHLORIDE (test code=CL) 105.0 mmol/L 98-107 CARBON DIOXIDE (test code=CO2) mmol/L 21-32 ANION GAP (test code=GAP) 10-20 GLUCOSE (test code=GLU) mg/dL 74-106 BLOOD UREA NITROGEN (test code=BUN) mg/dL 7-18 GLOMERULAR FILTRATION RATE (test code=GFR) mL/min >=60 CREATININE (test code=CREAT) mg/dL 0.55-1.02 BUN/CREATININE RATIO (test code=BUN/CREA) 10-20 CALCIUM (test code=CA) mg/dL 8.5-10.1 [id number] 11:54:00* Test Item Value Reference Range Comments TROPONIN-I (test code=TROPI) ng/mL 0-0.045 CBC W/O [id number] 11:41:00* Test Item Value Reference Range Comments WHITE BLOOD CELL (test code=WBC) 4.4 K/mm3 4.5-12.5 RED BLOOD CELL (test code=RBC) 3.40 mill/mm3 3.7-5.2 HEMOGLOBIN (test code=HGB) 11.1 gram/dL 11.5-15.5 HEMATOCRIT (test code=HCT) 33.9 % 36.0-46.0 MEAN CELL VOLUME (test code=MCV) 99.7 fL 80-98 MEAN CELL HGB (test code=MCH) 32.6 picogram 27.0-33.0 MEAN CELL HGB CONCETRATION (test code=MCHC) 32.7 gram/dL 33.0-36.0 RED CELL DISTRIBUTION WIDTH (test code=RDW) 13.6 % 11.6-16.2 PLATELET COUNT (test code=PLT) 274 K/mm3 150-450 MEAN PLATELET VOLUME (test code=MPV) 9.2 fL 6.7-11.0 - XR CHEST 1 [id number] 11:03:00 FAX: Stas Hernandez MD [phone] [place]: B St: PRE Name: NICOLLE MCGUIRE [facility] : [birth year] Age/S: 59/F [address] [facility] Unit #: [id number] Loc: [place] [address] Phys: Stas Hernandez MD Acct: [id number] Dis Date: Status: PRE ER PHONE #: [phone] Exam Date: 02/09/2019 1055 FAX #: [phone] Reason: CHEST PAIN EXAMS: CPT CODE: [id number] XR CHEST 1 V 68893 HISTORY: Chest pain. COMPARISON: None available. No acute infiltrates, effusion or con gestion is noted. The cardiac and mediastinal silhouette are withi n normal limits. Multiple old posterior lateral left mid rib fractures. Sh oulder prosthesis on the left IMPRESSION: No acute infiltrates, effusion or congestion. Electronically Sign ed by Harjinder Gonzalez on 02/09/2019 at 1103 Reported a nd signed by: Dung Gonzalez M.D. CC: Stas Hernandez MD Technologist: RT CHRISTINE(R) Trnscrd Date/Time/By: 02/09/2019 ([id number]) : By: [email or web address] Orig Print D/T: S: 02/09/2019 (8262) PAGE 1 Signed Report
[2019-02-13] MEDS ORDERED: LORAZEPAM INJ 2 MG/ML VIAL IV ONE (10:15)
[2019-02-13] MEDS ORDERED: MULTIVITAMINS- 12 INJECTION 10 ML, FOLIC ACID MDV 5 MG, THIAMINE HCL INJ 100 MG in SODI... IV ONE (10:15)
[2019-02-13 10:23] LABS: BASOPHILS % 0.7 % (0.0-1.0); EOSINOPHILS % 0.5 % (0.0-6.0); HEMATOCRIT 33.2 % (34.2-44.1); HEMOGLOBIN 11.3 g/dL (12.0-16.0); LYMPHOCYTES # (AUTO) 0.8 (1.0-3.2); LYMPHOCYTES % 14.7 % (18.0-39.1); MEAN CORPUSCULAR HEMOGLOBIN 32.8 pg (28-32); MEAN CORPUSCULAR VOLUME 96.5 fL (81-99); MONOCYTES # (AUTO) 0.4 (0.2-0.8); MONOCYTES % 6.3 % (4.4-11.3); NEUTROPHILS # (AUTO) 4.4 (2.1-6.9); NEUTROPHILS % 77.3 % (38.7-80.0); PLATELET COUNT 235 x10e3/uL (140-360); RED BLOOD COUNT 3.44 x10e6/uL (3.6-5.1); RED CELL DISTRIBUTION WIDTH 13.7 % (11.7-14.4)
[2019-02-13 10:33] LABS: INR 0.92; PROTHROMBIN TIME 12.8 seconds (11.9-14.5)
[2019-02-13 10:34] LABS: PARTIAL THROMBOPLASTIN TIME 31.8 seconds (23.8-35.5)
[2019-02-13 10:41] LABS: ALANINE AMINOTRANSFERASE 28 IU/L (0-55); ALBUMIN 4.4 g/dL (3.5-5.0); ALBUMIN/GLOBULIN RATIO 1.3 (0.8-2.0); ALKALINE PHOSPHATASE 75 IU/L (40-150); BLOOD UREA NITROGEN 5 mg/dL (7-26); BUN/CREATININE RATIO 7 (6-25); CALCIUM 10.1 mg/dL (8.4-10.2); CARBON DIOXIDE 21 mmol/L (22-29); CHLORIDE 100 mmol/L (98-107); CREATINE KINASE 157 IU/L (29-168); CREATININE, SERUM 0.68 mg/dL (0.57-1.11); EST GLOMERULAR FILTRATION RATE > 60 ML/MIN (60-); GLUCOSE 88 mg/dL (74-118); SODIUM 135 mmol/L (136-145)
--- NOTE | 2019-02-13 11:08 | Diagnostic Imaging Report ---
Examination: Single AP view of the chest. COMPARISON: None. INDICATION: Chest pain DISCUSSION: Lines/tubes: None. Lungs: The lungs are well inflated and clear. There is no evidence of pneumonia or pulmonary edema. Pleura: There is no pleural effusion or pneumothorax. Heart and mediastinum: The heart and the mediastinum are unremarkable. Bones and soft tissues: No acute bony abnormalities. Left total shoulder arthroplasty. Age-indeterminate left fourth through seventh rib fractures. IMPRESSION: No acute cardiopulmonary abnormalities. Age-indeterminate left fourth through seventh rib fractures. Signed by: Dr. Mandeep Dunbar M.D. on 02/13/2019 11:03 AM
[2019-02-13 11:30] LABS: BILIRUBIN,URINE NEGATIVE (NEGATIVE); CLARITY,URINE CLEAR (CLEAR); COLOR,URINE YELLOW (YELLOW); KETONES,URINE NEGATIVE (NEGATIVE); LEUKOCYTE ESTERASE ,URINE NEGATIVE (NEGATIVE); NITRITE,URINE NEGATIVE (NEGATIVE); PROTEIN,URINE DIPSTICK NEGATIVE (NEGATIVE); URINE UROBILINOGEN 0.2 mg/dL (0.2 - 1)
[2019-02-13 11:53] LABS: BACTERIA,URINE RARE /HPF; EPITHELIAL CELLS,URINE RARE /LPF; RBC,URINE 0-5 /HPF (0-5); WBC,URINE (MAN) 0-5 /HPF (0-5)
[2019-02-13 12:02] VITALS: BP 151/89
== END 2019-02-13 12:12 | disposition home or self-care (01) ==
LOC: ER 09:51
DX: R07.89 Other chest pain (principal); F41.1 Generalized anxiety disorder; I10 Essential (primary) hypertension; E78.5 Hyperlipidemia, unspecified
CPT/HCPCS: 36415; 71045; 80053; 81001; 82550; 82553; 84484; 85025; 85610; 85730; 93005; 99284; J2060; J3411; J7030